=== PATIENT | female | born 1930 | race Hispanic/Latino ===

== ENCOUNTER 2019-06-30 11:14 | Day surgery (SDC) | payer MEDICARE, OTHER ==
[~2019-06-30 11:14] MED LIST: APRACLONIDINE 1% OPHTH SOLN DROPERETTE ONE; PHENYLEPHRINE 10% OPHTH SOLN 5 ML ONE; TROPICAMIDE 1% OPHTH SOLN 3 ML ONE
[2019-06-30] MEDS ORDERED: TROPICAMIDE 1% OPHTH SOLN 3 ML OS ONE (11:25)
[2019-06-30] MEDS ORDERED: PHENYLEPHRINE 10% OPHTH SOLN 5 ML OS ONE (11:25)
[2019-06-30] MEDS ORDERED: APRACLONIDINE 1% OPHTH SOLN DROPERETTE OS ONE (11:25)
[2019-06-30 12:15] VITALS: BP 167/51
== END 2019-06-30 11:15 | disposition home or self-care (01) ==
LOC: OR 11:14
PROVIDERS: ATTEND Specialist
DX: H26.492 Other secondary cataract, left eye (principal); I11.0 Hypertensive heart disease with heart failure; I50.9 Heart failure, unspecified; I48.91 Unspecified atrial fibrillation; M19.90 Unspecified osteoarthritis, unspecified site; F41.9 Anxiety disorder, unspecified; Z88.5 Allergy status to narcotic agent; Z79.899 Other long term (current) drug therapy; Z98.41 Cataract extraction status, right eye; Z98.42 Cataract extraction status, left eye; Z95.0 Presence of cardiac pacemaker; Z90.710 Acquired absence of both cervix and uterus; Z98.890 Other specified postprocedural states